=== PATIENT | male | born 1935 | race Caucasian/White ===

== ENCOUNTER 2017-08-02 06:35 | Day surgery (SDC) | payer OTHER ==
[~2017-08-02] VITALS: Ht 167.6 cm; Wt 83.1 kg
[2017-08-02] MEDS ORDERED: IOHEXOL 350 MG/ML 50 ML BTL (for Cath Lab) OTHER ONE ×2 (06:36)
[2017-08-02] MEDS ORDERED: diphenhydrAMINE HCL 50 MG CAP PO SCH (07:00)
[2017-08-02] MEDS ORDERED: NS 1000P @30 MLS/HR (KVO) IV SCH (07:00)
[2017-08-02] MEDS ORDERED: ZETI10TA5 PO (07:20)
[2017-08-02] MEDS ORDERED: UMEC1INH INH (07:20)
[2017-08-02] MEDS ORDERED: LOSA50TA PO (07:20)
[2017-08-02] MEDS ORDERED: DILT240C7 PO (07:20)
[2017-08-02] MEDS ORDERED: HYDR-3133 PO (07:20)
[2017-08-02] MEDS ORDERED: OMEP40CA2 PO (07:20)
[2017-08-02] MEDS ORDERED: ALLO100T PO (07:20)
[2017-08-02] MEDS ORDERED: FENO160T PO (07:20)
[2017-08-02] MEDS ORDERED: VENTAER INH (07:20)
[2017-08-02] MEDS ORDERED: TRIAM.1%T TOPICAL (07:20)
[2017-08-02] MEDS ORDERED: ASPI81CH CHEW (07:20)
[2017-08-02] MEDS ORDERED: GLIM2TAB PO (07:20)
[2017-08-02] MEDS ORDERED: VOLT1GEL4 (07:20)
[2017-08-02] MEDS ORDERED: OXYC1TAB35 PO (07:20)
[2017-08-02 07:23] VITALS: BP 154/93; PULSE 86; RESP 22; TEMP 98.2; O2SAT 94
[2017-08-02 07:24] LABS: AUTOMATED NEUTROPHIL # 8.8 TH/MM3 (1.8-7.7); BASOPHIL # 0.2 TH/MM3 (0-0.2); BASOPHIL % 1.3 % (0.0-2.0); EOSINOPHIL # 0.6 TH/MM3 (0-0.4); EOSINOPHIL % 4.9 % (0.0-4.0); HEMATOCRIT 41.3 % (39.0-51.0); HEMO FLAGS DIFF FINAL; LYMPH % 12.8 % (9.0-44.0); LYMPHOCYTE # 1.6 TH/MM3 (1.0-4.8); MEAN CELL VOLUME 74.3 FL (80.0-100.0); MEAN CORPUSCULAR HEMOGLOBIN 23.4 PG (27.0-34.0); MEAN CORPUSCULAR HGB CONC 31.4 % (32.0-36.0); MONO % 10.2 % (0.0-8.0); NEUT % 70.8 % (16.0-70.0); PLATELET COUNT 432 TH/MM3 (150-450); RED BLOOD COUNT 5.55 MIL/MM3 (4.50-5.90); RED CELL DISTRIBUTION WIDTH 19.5 % (11.6-17.2); WHITE BLOOD COUNT 12.4 TH/MM3 (4.0-11.0)
[2017-08-02 07:39] LABS: BICARBONATE 22.8 MEQ/L (21.0-32.0); POTASSIUM 4.4 MEQ/L (3.5-5.1)
[2017-08-02 07:41] LABS: APTT (PATIENT) 34.2 SEC (24.3-30.1); PROTHROMBIN TIME - PATIENT 11.4 SEC (9.8-11.6)
[2017-08-02] MEDS ORDERED: HEPARIN-NS/PF INJ 500 ML ONE (08:47)
[2017-08-02] MEDS ORDERED: HEPARIN SODIUM - IV 10,000 UNITS/10 ML VIAL ONE (08:48)
[2017-08-02] MEDS ORDERED: MIDAZOLAM HCL 2 MG/2 ML VIAL ONE ×2 (08:48→09:40)
[2017-08-02] MEDS ORDERED: VERAPAMIL HCL 5 MG/2 ML VIAL ONE (08:48)
[2017-08-02] MEDS ORDERED: BIVALIRUDIN 250 MG VIAL ONE (09:34)
[2017-08-02] MEDS ORDERED: STERILE WATER FOR INJECTION 10 ML VIAL ONE (09:34)
[2017-08-02] MEDS ORDERED: TICAGRELOR 90 MG TAB PO ONE (09:53)
[2017-08-02] MEDS ORDERED: CLOPIDOGREL 300 MG TAB ONE ×2 (09:58)
[2017-08-02] MEDS ORDERED: ASPIRIN 325 MG TAB ONE (10:06)
--- NOTE | 2017-08-02 10:16 | CATHPROC ---
Leads Direct HIS Report Study Information Study Number Admission Scheduled Start Study Start [id number] Aug 02 2017 6:35AM 08/02/2017 Aug 02 2017 8:32AM [place] [facility] Cardiac Catheterization Admit Source Facility Department Other [facility] - [facility] Specialist Physician and Clinical Staff Initial MD Ernst, Odilon Senior Estimator Rosalinda Gibbons,MARII Recorder Rashad Donovan,[place] SUPERVISOR(BS) Scrub Lorraine Coughlin,RT(R) Procedures Performed Procedure Location (Site) Vessel Name Coronary Angiograms LCA Left Coronary Coronary Angiograms RCA Right Coronary Drug Eluting Inflatio LAD Prox Left Coronary L Heart Cath LV Gram-hand inj. LV LV Ventricle PTCA LAD Prox Left Coronary Wire insertion Fem Art (right) Femoral Art Equipment Time Optical Laboratory Manager Description Size Mfg Part Number Used/Scraped TRANSDUCER, REJI [id number] 08:46 MOORE AHMADI * Used W/STOCKCOCK *[id number] [id number] *[id number] [id number] *[id number] 08:46 [employer] PACK, CCL CUSTOM * Used *[id number] 08:46 [employer] SUPPORT, ARTERIAL ADULT [id number] *[id number] Used BALLOON, 3.0 X 20MM NC [id number] 09:50 MEDTRONIC 20MM Used EUPHORA *[id number] 09:44 [employer]IC STENT, 2.75 26MM JANIYA 2.75 26MM Used *[id number] 09:38 [employer]TR[employer]/AVE EBU 3.5 Z2 GUIDE CATHETER FR 6 Used *[id number] 09:48 [employer] MEDICAL 30 VITOR INDEFLATOR Used *[id number] BAND, RADIAL COMPRESSION TR [id number] 09:59 [employer] MEDICAL 24CM Used SHORT 24 *[id number] BAND, RADIAL COMPRESSION TR [id number] 10:01 [employer] MEDICAL 24CM Used SHORT 24 *[id number] 08:46 [employer] MEDICAL WIRE, 3MMJ .035 180CM 180CM Used *[id number] 08:46 NAMIC MANIFOLD, 4 PORT * Used *[id number] 08:46 [employer]COMED OMNIPAQUE, 350 MG, 150ML 150ML [id number] Used [id number] 08:46 [employer]IAS MEDICAL BLANKET,WARM AIR CCL * Used *[id number] SHEATH, FR6 TRANSRADIAL [id number] 08:46 [employer] FR 6 Used SLENDER 10CM *[id number] WIRE, RUNTHROUGH NS FLOPPY [id number] 09:39 [employer] 180CM Used .014 180CM *[id number] Equipment Model, Serial, Lot Number and Expiration Data Description Model Number Serial Number Lot Number Expiration Date BAND, RADIAL COMPRESSION TR [id number] 04-16-2020 SHORT 24 STENT, 2.75 26MM JANIYA [id number] 04-19-2019 History: Current Medications Medication Dosage/Unit Route Frequency Last Date/Time Taken Statins (any) ASA History: Allergies Allergy Reaction Ktvoxcv-Fml-Blc Reductase Inhibitor codeine History: Risk Factors Family History of Hypertension Dyslipidemia Previous LA Previous Heart Failure Premature CAD Yes Yes Yes No No Prior Valve Prior PCI Prior CABG Surgery No No No Cerebrovascular Peripheral Artery Chronic Lung On Dialysis Diabetes Diabetes Therapy Disease Disease Disease Yes No No Yes Yes Oral History: Stress Tests Stress or Imaging Studies Performed Yes Standard Exercise Stress Test No Stress Echo No Stress Test SPECT Stress Test SPECT Result Yes Positive Stress Test CMR No Cardiac CTA Coronary Calcium Score No No History: Other Current Smoker No Labs Hgb (g/dl) Hct (%) WBC (l/cumm) Platelets (thousands) 11.60-17.00 35.00-51.00 4.00-11.00 150.00-450.00 13.0 41.3 12.4 432 Glucose (mg/dl) BUN (mg/dl) Creatinine (mg/dl) BUN:Creatinine (1:x) 74.00-106.00 7.00-18.00 0.50-1.30 10.00-20.00 91 23 1.4 16.4 Na (meq/l) K (meq/l) 136.00-145.00 3.50-5.10 139 4.4 INR (PTT:PT) 0.90-1.10 1 CPK-MB (ng/ML) 0.50-3.60 Not Drawn Medication Medication Total Dose (Bolus/Oral) Medication Total Dosage/Unit 1% XYLOCAINE 20 mL ASPIRIN 325 mg FENTANYL 75 mcg HEPARIN 3300 units NTG (IC) 100 mcg PLAVIX 600 mg RADIAL COCKTAIL 5 mL (Bolus) VERSED 3 mg Medications (Bolus/Oral) Medication Time Given Dosage/Unit Administered By Reason VERSED 08/02/2017 9:23:00 AM 2 mg Rosalinda Gibbons 2 mg VERSED given in lab by Rosalinda Gibbons RN in Right Antecubital via Peripheral IV. Ordered by Odilon Vazquez. FENTANYL 08/02/2017 9:24:01 AM 50 mcg Rosalinda Gibbons 50 mcg FENTANYL given in lab by Rosalinda Gibbons RN in Right Antecubital via Peripheral IV. Ordered b y Odilon Ernst. 1% XYLOCAINE 08/02/2017 9:24:17 AM 20 mL Odilon Ernst 20 mL 1% XYLOCAINE given in lab by Odilon Ernst in Right Radial via Subcutaneous. Ordered by Odilon Cormier. Ntg 200mcg Verapamil 2.5mg Heparin RADIAL COCKTAIL 08/02/2017 9:24:46 AM 5 mL (Bolus) Odilon Ernst 2500U 5 mL (Bolus) RADIAL COCKTAIL given in lab by Odilon Ernst in Right Radial via Radial. Using [Brissa ution Name]. Ordered by Odilon Ernst. Reason: Ntg 200mcg Verapamil 2.5mg Heparin 2500U. HEPARIN 08/02/2017 9:37:18 AM 3300 units Rosalinda Gibbons 3300 units HEPARIN given in lab by Rosalinda Gibbons RN in Right Antecubital via Peripheral IV. Ordere d by Odilon Ernst. VERSED 08/02/2017 9:41:25 AM 1 mg Rosalinda Gibbons 1 mg VERSED given in lab by Rosalinda Gibbons RN in Right Antecubital via Peripheral IV. Ordered by Odilon Vazquez. FENTANYL 08/02/2017 9:42:30 AM 25 mcg Rosalinda Gibbons 25 mcg FENTANYL given in lab by Rosalinda Gibbons RN in Right Antecubital via Peripheral IV. Ordered b y Odilon Ernst. NTG (IC) 08/02/2017 9:53:43 AM 100 mcg Odilon Ernst 100 mcg NTG (IC) given in lab by Odilon Ernst via Intra-coronary. Ordered by Odilon Ernst. PLAVIX 08/02/2017 9:58:00 AM 600 mg Rosalinda Gibbons 600 mg PLAVIX given in lab by Rosalinda Gibbons, RN via Oral. Ordered by Odilon Ernst. 08/02/2017 10:11:00 ASPIRIN 325 mg Rosalinda Gibbons AM 325 mg ASPIRIN given in lab by Rosalinda Gibbons, RN via Oral. Ordered by Odilon Ernst. Medication (Drip) Medication Time Given Dosage/Unit Concentration/Unit Diluent (ml) Solutio n IV Solutions 08/02/2017 8:33:04 AM 0 mL (IV) 500 NaCl .9 Patient arrived on IV Solutions in Right Antecubital via Peripheral IV. Pump/Drip Flow = 20 ml/hr usi ng NaCl .9. Initial Case Assessment Cardiovascular HR Rhythm NIBP Chest Pain 73 SR 148/86 0 Edema Present Skin color Skin None Normal Warm Dry Circulatory - Right Pulses Dorsalis Pedis Femoral Radial 2 2 2 Scale (0,1,2,3,4,d) Circulatory - Left Pulses Dorsalis Pedis Femoral Radial 2 2 Scale (0,1,2,3,4,d) Circulatory - Lower Extremities Color Lower Right Color Lower Left Normal Normal Neurological State Oriented to time-place- Alert Moves all extremities person Respiration - General Respiration Rate SpO2 (%) O2 (lpm) (B/min) 16 95 2 Final Case Assessment Cardiovascular HR Rhythm NIBP Chest Pain 80 SR 144/78 0 Edema Present Skin color Skin None Normal Warm Dry Circulatory - Right Pulses Dorsalis Pedis Femoral Radial 2 2 2 Scale (0,1,2,3,4,d) Circulatory - Left Pulses Dorsalis Pedis Femoral Radial 2 2 Scale (0,1,2,3,4,d) Circulatory - Lower Extremities Color Lower Right Color Lower Left Normal Normal Neurological State Oriented to time-place- Alert Moves all extremities person Respiration - General Respiration Rate SpO2 (%) O2 (lpm) (B/min) 16 95 2 Chronological Log Time Study Chronological Log 8:32:38 Patient arrived via Bed. 8:32:39 Patient Name, D.O.B, / Armband Verified By R.N. 8:32:40 Consent signed by the physician and the patient and verified by the [facility] staff. 8:32:40 Pre-op and post- op instructions given; patient acknowledges understanding of instructions. 8:32:43 Verbal Stimulation=2 Physical Stimulation=1 Airway=1 Respiration=2 TOTAL=6. (0=absent, 1=li mited, 2=present) 8:32:44 Allens test performed on the right radial and ulnar artery. 8:32:56 Patient has been NPO for More than 6Hrs. 8:32:59 Skin Breakdown- 8:32:59 Patient Warmer Placed on the Table. 8:33:03 A # 20 IV was noted in the Antecubital (right). Grade = 0 8:33:04 Patient arrived on IV Solutions in Right Antecubital via Peripheral IV. Pump/Drip Flow = 20 ml/hr using NaCl .9. 8:33:05 History and physical on the chart or being dictated. Assessment: Initial Case, HR=73 BPM, Rhythm=SR, QJPZ=412/86 mmhg, Chest Pain=0, Edema=None, [place] r=Normal, Skin = Warm, Dry Right Pulses: Hi Ped=2, Femoral=2, Radial=2 Left Pulses: Hi Ped=2, Femoral=2 8:33:07 Lower Right Extremities: Color=Normal Lower Left Extremities: Color=Normal Neurological: State=Alert, Ox3, BELL Respiration: Resp=16 B/min, SpO2=95 %, O2=2 lpm Vitals capture started with the following parameters, Patient=Adult, Interval=5 min, Initial Pre zyuqn=266 mmHg, 8:41:42 Deflation Rate=5 mmHg, Cuff placed on Left Arm 8:42:27 HR=74 bpm, WJSO=602/82 mmhg, SpO2=91.0 %, Resp=19 B/min, Pain=0, Priyank=9, Narayan=2 8:46:09 Reference ECG taken 8:47:28 HR=75 bpm, AEBN=820/78 mmhg, SpO2=87.0 %, Resp=17 B/min, Pain=0, Priyank=9, Narayan=2 8:52:23 HR=86 bpm, NFYX=381/94 mmhg, SpO2=86.0 %, Resp=17 B/min, Pain=0, Priyank=9, Narayan=2 8:55:00 MD paged 8:55:59 Right Radial and groin(s) prepped with 2% chlorhexidine, and draped after a 3 min. waiting t radha. 8:57:26 HR=76 bpm, VMYQ=199/87 mmhg, SpO2=91.0 %, Resp=16 B/min, Pain=0, Priyank=9, Narayan=2 9:02:25 HR=74 bpm, PIAC=764/86 mmhg, SpO2=95.0 %, Resp=18 B/min, Pain=0, Priyank=9, Narayan=2 9:02:38 Pressure channel 1 zeroed. 9:07:27 HR=74 bpm, UMAV=268/85 mmhg, SpO2=94.0 %, Resp=15 B/min, Pain=0, Priyank=9, Narayan=2 9:12:26 HR=77 bpm, BFTA=441/92 mmhg, SpO2=94.0 %, Resp=15 B/min, Pain=0, Priyank=9, Narayan=2 9:18:06 HR=81 bpm, FZVL=739/95 mmhg, SpO2=95.0 %, Resp=16 B/min, Pain=0, Priyank=9, Narayan=2 9:18:51 MD arrived. Time Out. Correct patient, correct procedure, correct physician, power injector not loaded with contrast with surgical 9:21:47 team present. Time Out Concurred by MD and individual staff in procedure. 9:22:04 Case Start 9:22:30 HR=80 bpm, DZXO=549/90 mmhg, SpO2=95.0 %, Resp=20 B/min, Pain=0, Priyank=9, Narayan=2 9:23:00 2 mg VERSED given in lab by Rosalinda Gibbons, MARII in Right Antecubital via Peripheral IV. Orde red by Odilon Ernst. 50 mcg FENTANYL given in lab by Rosalinda Gibbons, RN in Right Antecubital via Peripheral IV. Orde red by Sujata, 9:24:01 Odilon. 20 mL 1% XYLOCAINE given in lab by Odilon Ernst in Right Radial via Subcutaneous. Ordered b y Sujata, 9:24:17 Odilon. 9:24:25 Access site was Radial Artery. A SHEATH, FR6 TRANSRADIAL SLENDER 10CM FR 6 was advanced into the Radial (right) using the Jason meyer 9:24:32 technique. 5 mL (Bolus) RADIAL COCKTAIL given in lab by Odilon Ernst in Right Radial via Radial. Using [Solution Name]. 9:24:46 Ordered by Odilon Ernst. Reason: Ntg 200mcg Verapamil 2.5mg Heparin 2500U. A JR 4.0 INFINITI CATHETER FR 5 was advanced over a wire. OMNIPAQUE, 350 MG, 150ML 150ML was use d for 9:25:20 injections. Recorded Pressure: LV, HR=83, Condition=Condition 1 9:26:00 (Left Ventricle) LV 113/7/9 9:26:25 The LV was manually injected with 8 cc's and visualized. OMNIPAQUE, 350 MG, 150ML 150ML used . Recorded Pressure: LV, Ao, HR=86, Condition=Condition 1 9:26:40 (Left Ventricle) LV 102/9/12, (Aorta) Ao 109/71/87 9:27:25 HR=83 bpm, TNHV=865/73 mmhg, SpO2=89.0 %, Resp=17 B/min, Pain=0, Priyank=9, Narayan=2 9:28:40 The RCA was injected and visualized at various angles. OMNIPAQUE, 350 MG, 150ML 150ML used. Recorded Pressure: Ao, HR=82, Condition=Condition 1 9:28:47 (Aorta) Ao 113/71/90 9:30:18 The RCA was injected and visualized at various angles. OMNIPAQUE, 350 MG, 150ML 150ML used. After removing the current catheter a JL 3.5 INFINITI CATHETER FR 5 was advanced over a WIRE, 3M MJ .035 180CM 9:31:21 180CM. 9:32:01 The LCA was injected and visualized at various angles. OMNIPAQUE, 350 MG, 150ML 150ML used. 9:32:24 HR=76 bpm, UAWZ=348/68 mmhg, SpO2=91.0 %, Resp=16 B/min, Pain=0, Priyank=9, Narayan=2 9:35:47 Catheter was removed Recorded Pressure: Ao, HR=79, Condition=Condition 1 9:36:21 (Aorta) Ao 147/83/111 A EBU 3.5 Z2 GUIDE CATHETER FR 6 was advanced over a wire. OMNIPAQUE, 350 MG, 150ML 150ML was us ed for 9:36:59 injections. 3300 units HEPARIN given in lab by Rosalinda Gibbons, MARII in Right Antecubital via Peripheral IV. O rdered by Sujata, 9:37:18 Odilon. 9:37:25 HR=80 bpm, DCQU=877/79 mmhg, SpO2=93.0 %, Resp=15 B/min, Pain=0, Priyank=9, Narayan=2 9:38:54 A WIRE, RUNTHROUGH NS FLOPPY .014 180CM 180CM was inserted via Fem Art (right). 9:41:25 1 mg VERSED given in lab by Rosalinda Gibbons, RN in Right Antecubital via Peripheral IV. Orde red by Odilon Ernst. 9:42:28 HR=78 bpm, CYAX=454/80 mmhg, SpO2=94.0 %, Resp=16 B/min, Pain=0, Priyank=9, Narayan=2 25 mcg FENTANYL given in lab by Rosalinda Gibbons, MARII in Right Antecubital via Peripheral IV. Orde red by Sujata, 9:42:30 Odilon. A STENT, 2.75 26MM JANIYA 2.75 26MM was advanced through a EBU 3.5 Z2 GUIDE CATHETER FR 6 over a W SEBASTIAN, 9:43:47 RUNTHROUGH NS FLOPPY .014 180CM 180CM. 9:47:27 HR=76 bpm, JHZP=607/81 mmhg, SpO2=92.0 %, Resp=17 B/min, Pain=0, Priyank=9, Narayan=2 A STENT, 2.75 26MM JANIYA 2.75 26MM was deployed using a 30 VITOR INDEFLATOR at 16 atmospheres for 1 7 seconds 9:47:50 in the LAD Prox. 9:48:17 Delivery device removed A BALLOON, 3.0 X 20MM NC EUPHORA 20MM was inserted over WIRE, RUNTHROUGH NS FLOPPY .014 180CM 18 0CM 9:49:03 via the Radial (right). A BALLOON, 3.0 X 20MM NC EUPHORA 20MM over a WIRE, RUNTHROUGH NS FLOPPY .014 180CM 180CM in the LAD 9:49:51 Prox was inflated using a 30 VITOR INDEFLATOR at 16 vitor for 12 sec. 9:52:28 HR=78 bpm, HOXX=379/78 mmhg, SpO2=94.0 %, Resp=15 B/min, Pain=0, Priyank=9, Narayan=2 9:53:00 Balloon Removed. 9:53:43 100 mcg NTG (IC) given in lab by Odilon Ernst via Intra-coronary. Ordered by Odilon Ernst. 9:55:23 Wire removed 9:55:44 Catheter was removed 9:55:51 Case End Assessment: Final Case, HR=80 BPM, Rhythm=SR, XEWQ=584/78 mmhg, Chest Pain=0, Edema=None, Color= Normal, Skin = Warm, Dry Right Pulses: Hi Ped=2, Femoral=2, Radial=2 Left Pulses: Hi Ped=2, Femoral=2 9:56:06 Lower Right Extremities: Color=Normal Lower Left Extremities: Color=Normal Neurological: State=Alert, Ox3, BELL Respiration: Resp=16 B/min, SpO2=95 %, O2=2 lpm 9:57:29 HR=81 bpm, ZJUC=488/87 mmhg, SpO2=91.0 %, Resp=18 B/min, Pain=0, Priyank=9, Narayan=2 9:58:00 600 mg PLAVIX given in lab by Rosalinda Gibbons, MARII via Oral. Ordered by Odilon Ernst. Radial Compression Device Used. ~VOLUME ML~ mLs of air placed in BAND, RADIAL COMPRESSION TR GOLD RT 24 9:58:14 24CM. Affected hand ~O2 SATURATION~ % O2 saturation. 9:58:39 Sterile dressing applied to site 9:58:40 No case complications noted. 9:58:41 Cine recording checked. 9:58:49 Bedside Report will be given. 9:58:51 Implantable Device card placed in patient's chart. 9:58:52 Contrast Scanned 9:59:00 A Left Heart Cath was performed. 10:02:28 HR=75 bpm, IROA=092/82 mmhg, SpO2=94.0 %, Resp=18 B/min, Pain=0, Priyank=9, Narayan=2 10:07:31 HR=78 bpm, IMXA=512/81 mmhg, SpO2=92.0 %, Resp=17 B/min, Pain=0, Priyank=9, Narayan=2 10:11:00 325 mg ASPIRIN given in lab by Rosalinda Gibbons RN via Oral. Ordered by Odilon Ernst. 10:11:57 Vitals capture stopped. 10:12:54 Patient moved to stretcher End Study - Contrast Media Used In Study Contrast Total Opened (mL) Total Used (mL) Total Wasted (mL) Omnipaque 120 120 0 End Study - Maximum Contrast Load Max Contrast Load (mL) 296.8 End Study - Radiation Exposure Fluoro Time (minutes) 12.9 End Study - Patient Disposition Complications Transferred To Interventional Outcome No Telemetry Bed successful
--- NOTE | 2017-08-02 10:44 | MA ---
cc: YEFRI LOPEZ DATE OF 1935 DATE OF CONSULTATION August 02, 2017 PROCEDURE PERFORMED 1. Left heart catheterization. 2. Selective right and left coronary angiography. 3. Left ventriculogram. 4. Successful PCI to proximal LAD. INDICATIONS Angina. Positive stress test. APPROACH Right transradial. PROCEDURE DESCRIPTION Consent signed. The patient was brought into the cardiac laborer tan house in a fasting state. The right wrist was prepped and draped in sterile fashion using 1% lidocaine for local anesthesia and a micropuncture kit. A 6-Albanian sheath was inserted into the right radial artery, antispasmodic cocktail given, then selective right and left coronary angiography was performed with a JR-4 and JL- 3.5 diagnostic catheter. Angiography was taken in multiple views. The JR-4 diagnostic catheter was then introduced to the ventricle over a wire. This was followed by pressure recordings, left ventriculogram and pullback. We identified a significant lesion in the proximal LAD of 99% stenoses. This lesion corresponded to the same territory where the stress test was positive for which we decided to fix. For this the left main was engaged with a 3.5 EBU guide. Heparin was given for IV anticoagulation. The LAD vessel was wired with a run-through wire which was anchored distally. Then the lesion was direct stented with a 2.75 x 26 drug-eluting stent. The stent was postdilated with a Non-Compliant 3.0/20 balloon to high atmospheres. Final angiographic views revealed good stent position and expansion with PAULIE-3 flow and no residual stenosis. The patient tolerated the procedure well without complications. ESTIMATED BLOOD LOSS Less than 30 cc. TOTAL CONTRAST USED 150 cc. The right wrist radial access site was closed with a TR band. ANGIOGRAPHIC RESULTS LEFT VENTRICLE The left ventricular pressure was 102/90 with an LVEDP of 12. The aortic pressure was 147/83 with a mean of 111. There was no gradient upon pullback from the left ventricle to the aorta. The left ventriculogram revealed a symmetrically jhon ventricle with an estimated ejection fraction of 50%. ANGIOGRAPHY 1. The right coronary artery is a nondominant vessel, is small and patent with PAULIE-3 flow. It has an anterior takeoff. 2. The left main is mildly calcified. It has a distal 10% lesion. It is giving off the left circumflex, a ramus intermedius vessel and the LAD. 3. The LAD is a transapical vessel; it has a significant long at least a 24 mm proximal lesion with sequential stenosis of 90 and 99% and has PAULIE-3 flow. It gives off three diagonal vessels which are small and patent. 4. The left circumflex artery is a dominant vessel supplying the PDA. It has two small OM branches which are patent with nonobstructive coronary artery disease. 5. Ramus intermedius vessel is patent with nonobstructive coronary artery disease. CONCLUSION 1. Successful PCI/KAM to proximal LAD. 2. Preserved LV systolic function. RECOMMENDATIONS 1. The patient will go to the [facility] for post-cath care. 2. DAPT with aspirin and Plavix. 3. IV hydration with a normal saline 125 cc/hour for the next 4 hours. 4. If the patient is stable at the end of the day, he may be able to go home today. MD LARS Arango/NICOLE /10:01 AM /10:27 AM ROSANGELA
[2017-08-02] MEDS ORDERED: CLOPIDOGREL 75 MG TAB PO SCH (13:54)
[2017-08-02] MEDS ORDERED: LABETALOL HCL 100 MG/20 ML VIAL IV ONE (14:00)
[2017-08-02] MEDS ORDERED: SODIUM CHLOR 0.9% 1000 ML INJ 1,000 ML IV SCH (14:00)
--- NOTE | 2017-08-02 21:48 | EKG ---
Date Performed: 08/02/2017 Time Performed: 07:34:42 PTAGE: 82 years EKG: Sinus rhythm . Right bundle branch block Inferior Q waves Abnormal ECG NO PREVIOUS TRACING DOCTOR: Deshawn Driscoll Interpretating Date/Time 08/02/2017 21:47:59
--- NOTE | 2017-08-04 07:27 | EKG ---
Date Performed: 08/02/2017 Time Performed: 12:03:52 PTAGE: 82 years EKG: Sinus rhythm . Right bundle branch block Possible inferior myocardial infarct, age undetermined Anterior Q waves o f undetermined significance Compared to the previous tracing no significant change Abnormal ECG PREVIOUS TRACING : 08/02/2017 07.34 DOCTOR: Jovon Pascal Interpretating Date/Time 08/04/2017 07:26:17
== END 2017-08-02 15:07 | disposition home or self-care (01) ==
LOC: HDOC 06:35 → HDIC 06:36 → HDOC 15:07
PROVIDERS: ATTEND Radiology Vascular & Interventional Radiology
DX: I25.110 Atherosclerotic heart disease of native coronary artery with unstable angina pectoris (principal); I12.9 Hypertensive chronic kidney disease with stage 1 through stage 4 chronic kidney disease, or unspecified chronic kidney disease; N18.3 Chronic kidney disease, stage 3 (moderate); J44.9 Chronic obstructive pulmonary disease, unspecified; E11.9 Type 2 diabetes mellitus without complications; Z79.01 Long term (current) use of anticoagulants
CPT/HCPCS: 80048; 85025; 85610; 85730; 92928; 93005; 93454; C1725; C1769; C1874; C1887; C1893; J1644; J2250; J3010; Q0163; J0583; Q9967